=== PATIENT | male | born 1975 | race Caucasian/White ===

== ENCOUNTER 2017-04-21 08:58 | Inpatient (IN) ==
[2017-04-21] MEDS ORDERED: PANTOPRAZOLE 40 MG VIAL IV STA (09:17)
[2017-04-21] MEDS ORDERED: SODIUM CHLORIDE 0.9% 1,000 ML IV STA (09:17)
[2017-04-21] MEDS ORDERED: PANTOPRAZOLE 40 MG VIAL IV ONE (10:18)
[2017-04-21 10:20] LABS: Basophils # 0.1 10*3/uL (0.0-0.2); Eosinophils % 0.2 % (0.00-10.9); Hemoglobin 14.6 GM/DL (14.0-18.0); Immature Granulocytes % 0.3 %; Immature Granulocytes Absolute 0.02 #; Lymphocytes # 1.9 10*3/uL (1.4-4.0); Lymphocytes % 30.6 % (21.2-54.2); Mean Corpuscular HGB Conc 34.8 GM/DL (32-36); Mean Corpuscular Hemoglobin 32 PG (27-34); Mean Corpuscular Volume 93.1 FL (87-102); Mean Platelet Volume 10.5 FL (9.6-12.0); Monocytes # 0.4 10*3/uL (0.11-0.8); Monocytes % 6.4 % (1.7-12.7); Neutrophils # 3.9 10*3/uL (1.4-7.4); Neutrophils % 61.5 % (38.7-73.9); Platelet Count 281 T/CUMM (130-400); Red Blood Count 4.51 MC/CUMM (3.8-5.5); Red Cell Distribution Width 12.6 % (9.3-17.3); White Blood Count 6.3 T/CUMM (4-12)
[2017-04-21 10:28] LABS: INR 0.9; Partial Thromboplastin Time 24.5 SECS (0-40)
[2017-04-21 10:47] LABS: Albumin 4.2 G/DL (3.4-5.0); Bilirubin,Total 0.6 MG/DL (0.2-1.0); Calcium 9.6 MG/DL (8.5-10.1); Osmolality,Calculated 281.3 MOS/KG (273-304); Potassium 4.1 MMOL/L (3.5-5.1); Total Protein 7.3 G/DL (6.4-8.3)
[2017-04-21] MEDS ORDERED: SODIUM CHLORIDE 0.9% 1,000 ML IV PRN (14:20)
[2017-04-21] MEDS ORDERED: MORPHINE 2 MG/1 ML SYRINGE IV PRN (14:43)
[2017-04-21] MEDS: SODIUM CHLORIDE 0.9% 1,000 ML IV SCH (15:15)
[2017-04-21] MEDS: metroNIDAZOLE INJ 500 MG in PREMIX 1 EACH IV SCH (15:15)
[2017-04-21] MEDS ORDERED: BISACODYL 5 MG TABLET PO ONE (15:30)
[2017-04-21 15:53] LABS: Apearance,Urine CLEAR (Clear); Bilirubin,Urine Negative (Negative); Blood, Urine Negative (Negative); Glucose,Urine (UA) Negative (Negative); Ketones,Urine Negative (Negative); Nitrite,Urine Negative (Negative); Protein,Urine Negative; Squamous Epithelial Cell,Urine Occasional /HPF (0-10); Urine Color Yellow (Yellow); Urine Specific Gravity 1.009 (1.001-1.035); Urine Urobilinogen < 2.0 EU/DL (0.2-1.0); WBC,Urine <1 /HPF (0-6)
[2017-04-21] MEDS: LEVOFLOXACIN INJ 500 MG in PREMIX 1 EACH IV SCH (16:48)
[2017-04-21 16:52] LABS: Hemoglobin 13.8 GM/DL (14.0-18.0)
[2017-04-21] MEDS ORDERED: POLYETHYLENE GLYCOL POWDER 255 GM BOTTLE PO ONE (18:00)
[2017-04-21] MEDS: PANTOPRAZOLE 40 MG VIAL IV SCH (20:12)
[2017-04-21] MEDS ORDERED: QUEtiapine 25 MG TABLET PO SCH (21:00)
[2017-04-21] MEDS ORDERED: tiZANidine 4 MG TABLET PO SCH (21:00)
[2017-04-21] MEDS ORDERED: diphenhydrAMINE CAP 25 MG CAPSULE PO SCH (21:00)
[2017-04-21 22:01] LABS: Hemoglobin 13.1 GM/DL (14.0-18.0)
[2017-04-22] MEDS: metroNIDAZOLE INJ 500 MG in PREMIX 1 EACH IV SCH ×2 (03:49→16:39)
[2017-04-22 06:03] LABS: Basophils # 0.1 10*3/uL (0.0-0.2); Basophils % 0.5 % (0.0-0.8); Hematocrit 38.4 VOL% (42.0-52.0); Hemoglobin 13.4 GM/DL (14.0-18.0); Immature Granulocytes % 0.4 %; Immature Granulocytes Absolute 0.04 #; Lymphocytes # 2.8 10*3/uL (1.4-4.0); Lymphocytes % 26.8 % (21.2-54.2); Mean Corpuscular HGB Conc 34.9 GM/DL (32-36); Mean Corpuscular Hemoglobin 32 PG (27-34); Mean Platelet Volume 10.9 FL (9.6-12.0); Monocytes # 0.6 10*3/uL (0.11-0.8); Monocytes % 5.8 % (1.7-12.7); Neutrophils # 6.9 10*3/uL (1.4-7.4); Neutrophils % 66.5 % (38.7-73.9); Platelet Count 264 T/CUMM (130-400); Red Blood Count 4.13 MC/CUMM (3.8-5.5); Red Cell Distribution Width 12.6 % (9.3-17.3); White Blood Count 10.3 T/CUMM (4-12)
[2017-04-22] MEDS: SODIUM CHLORIDE 0.9% 1,000 ML IV SCH ×2 (06:23→07:40)
[2017-04-22 06:30] LABS: Calcium 9.3 MG/DL (8.5-10.1); Osmolality,Calculated 278.4 MOS/KG (273-304); Potassium 4.3 MMOL/L (3.5-5.1)
[2017-04-22] MEDS ORDERED: LISINOPRIL 20 MG TABLET PO SCH (09:00)
[2017-04-22] MEDS ORDERED: PRAVASTATIN 40 MG TABLET PO SCH (09:00)
[2017-04-22] MEDS: PANTOPRAZOLE 40 MG VIAL IV SCH (10:40)
[2017-04-22] MEDS ORDERED: PROPOFOL 200 MG/20 ML VIAL IV ONE (12:59)
[2017-04-22 13:56] VITALS: BP 127/076
[2017-04-22] MEDS: LEVOFLOXACIN INJ 500 MG in PREMIX 1 EACH IV SCH (15:43)
[2017-04-22] MEDS ORDERED: HYDROCORTISONE 25 MG SUPP RECTAL SCH (21:00)
== END 2017-04-22 17:12 | disposition home or self-care (01) | DRG 395 ==
LOC: N.ED 08:58 → N.EDINP 11:19 → SUATTDRO 11:19 → N.CC 13:27
PROVIDERS: ADMIT Emergency Medicine; ATTEND Hospitalist